=== PATIENT | male | born 1955 | race Caucasian/White ===

== ENCOUNTER 2017-11-11 07:56 | Emergency (ER) | payer OTHER ==
--- NOTE | 2017-11-11 08:08 | EDPHY ---
H & P Stated Complaint: continuing cellulitis l lower leg despite bactrim and cipro Time Seen by Provider: 11/11/17 08:07 - Personal History Current Tetanus Diphtheria and Acellular Pertussis (TDAP): Unsure - Medical/Surgical History Hx Asthma: No Hx Chronic Respiratory Disease: No Hx Diabetes: No Hx Cardiac Disease: No Hx Renal Disease: No Hx Cirrhosis: No Hx Alcoholism: No Hx HIV/AIDS: No Hx Splenectomy or Spleen Trauma: No Other PMH: denies - Social History Smoking Status: Never smoked Constitutional: Initial Vital Signs Temperature (C) 36.7 C 11/11/17 08:00 Heart Rate 86 11/11/17 08:00 Respiratory Rate 18 11/11/17 08:00 Blood Pressure 122/93 H 11/11/17 08:00 O2 Sat (%) 97 11/11/17 08:00 O2 Delivery Mode Room Air Allergies/Adverse Reactions: Penicillins Allergy (Verified 11/11/17 08:00) Home Medications: Medication Instructions Recorded Bactrim DS 11/11/17 Cipro 11/11/17 Medical Decision Making ED Course/Re-evaluation: CHIEF COMPLAINT: Left lower leg infection HISTORY OF PRESENT ILLNESS: The patient is a 62 y/o male complaining of a worsening left lower leg infection. On 10/01/17, 1.5 months ago, he hit his leg at home. On 10/21, he noticed that the are where he hit his leg was red and painful so he presented to a [facility]. During this visit they diagnosed him with cellulitis and placed him on a 10 day course of Bactrim. However, the infection did not improve and he developed a fever of 101 degrees on 10/31. Due to the worsening symptoms, he presented to the urgent care again and was placed on a second course of Bactrim as well as Cipro. However, the infection has still not improved and he was unable to work recently due to feeling so poorly. Denies headache, chest pain, shortness of breath, abdominal pain, urinary or bowel complaints, nausea, vomiting, paresthesias, numbness. REVIEW OF SYSTEMS: A 10 point review of systems was performed and is negative with the exception of the elements mentioned in the history of present illness. PHYSICAL EXAM: HR, BP, O2 Sat, RR. Temp noted General Appearance: Alert, well hydrated, appropriate, and non-toxic appearing. Head: Atraumatic without scalp tenderness or obvious injury Eyes: Pupils equal, round, reactive to light and accommodation, EOMI, no trauma , no injection. Ears: Clear bilaterally, no perforation, normal landmarks Nose: Atraumatic, no rhinorrhea, clear. Throat: Mucus membranes moist. Neck: Supple, nontender, no lymphadenopathy. Respiratory: No retractions, no distress, no wheezes, and no accessory muscle use. Lungs are clear to auscultation bilaterally. Cardiovascular: Regular rate and rhythm, no murmurs, rubs, or gallops. Bilateral carotid, radial, dorsalis pedis, and posterior tibial pulses intact. Good capillary refill all extremities. Gastrointestinal: Abdomen is soft, nontender, non-distended, no masses, no rebound, no guarding, no peritoneal signs. Musculoskeletal: Normal active ROM of all extremities, atraumatic. Neurological: Alert, appropriate, and interactive. Nonfocal neuro. Skin: Left lower extremity baseball-sized erythema and warmth over the anterior medial leg, just above the ankle over the tibia. No rashes, good turgor, no nodules on palpation. Past medical history: Left leg cellulitis Past surgical history: Denies Family history: Denies Social history: Lives in [place], [facility] DIAGNOSTICS/PROCEDURES/CRITICAL CARE TIME: Procedure: Abscess drainage. The patient's abscess was located on the left lower medial leg and was anesthetized using lidocaine. Risks, benefits, alternatives discussed with the patient and consent obtained. The abscess was incised with a #11 blade and a large amount of infected hematoma has been evacuated. The wound was irrigated and packed. The patient tolerated the procedure well. The procedure was performed by myself, Dr. Khalil. DIFFERENTIAL DIAGNOSIS: The differential diagnosis for the patient's leg infection included but was not limited to cellulitis, infected hematoma, abscess, insect bite, and sepsis. MEDICAL DECISION MAKING: The patient is a 62 y/o male presenting with a worsening left lower leg infection since 10/01/17, 1.5 months ago. He has taken two courses of Bactrim and one course of Cipro, without improvement of his symptoms. On exam he has a baseball-sized left lower extremity erythema and warmth over the anterior medial leg, just above the ankle over the tibia. I suspect this cellulitis has progressed to an abscess and will need to have an I&D. 2025: Consulted with Dr. Guerrero, general surgeon, regarding this patient. He will followup with this patient in the office. 0840: Reassessed patient and performed an I&D on the abscess; wound culture sent to the lab. I have also discussed repacking the wound in 48 hours and followup with Dr. Guerrero. Return precautions provided; patient is comfortable with this plan. Departure - Departure Disposition: Home, Routine, Self-Care Clinical Impression: Abscess of left lower extremity Cellulitis Qualifiers: Site of cellulitis: extremity Site of cellulitis of extremity: lower extremity Laterality: left Qualified Code(s): L03.116 - Cellulitis of left lower limb Condition: Good Instructions: Cellulitis (ED), Abscess (ED), Abscess Incision and Drainage (DC) Additional Instructions: 1. Continue taking the antibiotics as prescribed. 2. Repack the wound in 48 hours. [address] Tank Guerrero, general surgeon, for your abscess. 4. Return to the Emergency Department for fever, redness, discharge from wound, increasing pain or other worsening of condition. Referrals: Tank Guerrero MD [Medical Doctor] - As per Instructions Report Scribed for: Nelson Khalil Report Scribed by: Za Ogden Date of Report: 11/11/17 Time of Report: 08:08
[2017-11-11 08:59] VITALS: BP 130/91
== END 2017-11-11 09:07 | disposition home or self-care (01) ==
PROC: 0H9LX0Z Drainage of Left Lower Leg Skin with Drainage Device, External Approach (ICD-10-PCS; principal; 2017-11-11)
DX: L02.416 Cutaneous abscess of left lower limb (principal); L03.116 Cellulitis of left lower limb